=== PATIENT | male | born 1985 | race Caucasian/White ===

== ENCOUNTER 2024-07-25 18:01 | Emergency (ER) | payer OTHER, SELFPAY ==
[2024-07-25] VITALS (31 sets, daily range): BP systolic 120–167; BP diastolic 53–87; PULSE 66–94; RESP 11–30; TEMP 36–37.1; O2SAT 85–100
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
[2024-07-25] MEDS: fentaNYL 100 MCG/2 ML VIAL 50 MCG IVP ×3 (18:41→20:20)
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
[2024-07-25 18:53] LABS: HGB 13.2 g/dL (13.5-17.5); MCH 29.4 pg (27.0-33.0); MCHC 33.8 % (32.0-36.0); MCV 87 fL (80-95); MPV 9.7 fL (8.0-11.0); Platelet Count 215 10^3/uL (130-400); RBC 4.49 10^6/uL (4.36-5.78); RDW 13.3 % (11.8-14.1); RDW-SD 41.9 fL; WBC 18.22 10^3/uL (4.4-10.8)
[2024-07-25] MEDS: Normal Saline - Diluent 50 ML VIAL IJ (18:56)
[2024-07-25] MEDS: Omnipaque 350 MG/ML 100 ML BTL IJ (18:57)
[2024-07-25 19:08] LABS: ALT 43 U/L (16-63); AST 34 U/L (15-37); Albumin 3.8 g/dL (3.4-5.0); Alkaline Phosphatase 39 U/L (46-116); Anion Gap 7.3 mmol/L (3-11); BUN 14 mg/dL (7-18); Bilirubin, Total 0.23 mg/dL (0.2-1.0); CO2 30.7 mmol/L (21.0-32.0); Chloride 102 mmol/L (98-107); Estimated GFR 96.97 (mL/min/1.73m2); Glucose 111 mg/dL (74-106); Lipase 39 U/L (16-77); Potassium 3.7 mmol/L (3.5-5.1); Sodium 140 mmol/L (136-145)
[2024-07-25 19:14] LABS: Calcium 9.1 mg/dL (8.5-10.1)
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
[2024-07-25] MEDS: oxyCODONE 5 MG TAB PO (20:19)
[2024-07-25 21:09] LABS: Bilirubin Negative (Negative); Blood Trace-lysed (Negative); Clarity Clear (Clear); Glucose Negative (Negative); Ketones Trace mg/dL (Negative); Leukocyte Esterase Negative (Negative); Nitrite Negative (Negative); Specific Gravity 1.015 (1.005-1.025); Urobilinogen 0.2 mg/dL (Up to 0.2)
[2024-07-25 21:19] LABS: Bacteria Negative HPF (Negative); C & S Indicated? No; Casts Negative LPF (Negative); Crystals Negative HPF (Negative); Epithelial Cells Rare HPF (Negative); Mucus Trace (Negative); WBC 0-2 HPF (0-5)
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
== END 2024-07-25 21:59 | disposition home or self-care (01) ==
PROVIDERS: Emergency Provider Nurse Practitioner Family
DX: S42.021A Displaced fracture of shaft of right clavicle, initial encounter for closed fracture (principal); R07.82 Intercostal pain; V18.0XXA Pedal cycle driver injured in noncollision transport accident in nontraffic accident, initial encounter
CPT/HCPCS: 74177; 80053; 83690; 85027; 99285; 70450; 71260; 72125; 73000; 81003; 81015; 99283; J3010; J3490